=== PATIENT | female | born 1995 | race Caucasian/White ===

== ENCOUNTER 2017-08-20 12:06 | Emergency (ER) | payer MEDICAID ==
[2017-08-20 12:09] VITALS: BMI 41.8
[2017-08-20 12:18] VITALS: TEMP 98.5
[2017-08-20 13:51] VITALS: RESP 17; O2SAT 100
--- NOTE | 2017-08-20 14:14 | RAD ---
HISTORY: cough COMPARISON: No prior. TECHNIQUE: Chest PA and lateral FINDINGS: LUNGS: No active pulmonary disease. PLEURA: No significant pleural effusion identified. No pneumothorax apparent. CARDIOVASCULAR: Normal. OSSEOUS STRUCTURES: No significant abnormalities. VISUALIZED UPPER ABDOMEN: Normal. OTHER FINDINGS: None. IMPRESSION: No active disease.
--- NOTE | 2017-08-20 14:29 | ED PDOC ---
Arrival/HPI - General Chief Complaint: Cough, Cold, Congestion Time Seen by Provider: 08/20/17 12:32 Historian: Patient - History of Present Illness Narrative History of Present Illness (Text): 08/20/17 14:30 22yo female with PMhx of PCOS present with complaint of nonproductive cough x 2weeks. Patient states she was seen by her PMD for the cough and was given Zpack and proventil. States finished the Zpack but still coughing. States she started having chest pain with the cough. she denies SOB, diaphoresis, LE edema , calf pain, fever,chills, nausea, abdominal pain, any other complaint. Past Medical History - Provider Review Nursing Documentation Reviewed: Yes - Infectious Disease Hx of Infectious Diseases: None - Cardiac Hx Cardiac Disorders: No - Pulmonary Hx Respiratory Disorders: No - Neurological Hx Neurological Disorder: No - HEENT Hx HEENT Disorder: No - Renal Hx Renal Disorder: No - Endocrine/Metabolic Hx Endocrine Disorders: No - Hematological/Oncological Hx Blood Disorders: No - Integumentary Hx Dermatological Disorder: No - Musculoskeletal/Rheumatological Hx Musculoskeletal Disorders: No - Gastrointestinal Hx Gastrointestinal Disorders: No - Genitourinary/Gynecological Hx Genitourinary Disorders: Yes Other/Comment: ovarian cyst, irregular menses - Psychiatric Hx Psychophysiologic Disorder: No Hx Anxiety: No Hx Bipolar Disorder: No Hx Depression: No Hx Emotional Abuse: No Hx Hallucinations: No Hx Panic Disorder: No Hx Post Traumatic Stress Disorder: No Hx Psychosis: No Hx Physical Abuse: No Hx Schizophrenia: No Hx Sexual Abuse: No Hx Substance Use: No - Anesthesia Hx Anesthesia: Yes Hx Anesthesia Reactions: No Hx Malignant Hyperthermia: No Family/Social History - Physician Review Nursing Documentation Reviewed: Yes Family/Social History: Unknown Family HX Smoking Status: Never Smoked Hx Alcohol Use: No Hx Substance Use: No Allergies/Home Meds Allergies/Adverse Reactions: Allergies bupropion Adverse Reaction (Verified 08/20/17 12:10) SWELLING naltrexone Adverse Reaction (Verified 08/20/17 12:10) SWELLING Home Medications: Home Meds Medication Instructions Recorded Confirmed Albuterol HFA [Ventolin HFA 90 0.09 mg IH TID 08/20/17 08/20/17 mcg/actuation (8 g)] Beclomethasone Dipropionate [Qvar 0.08 mg IH BID 08/20/17 08/20/17 80 mcg] Fluticasone Nasal [Flonase] 0.05 mg NS DAILY 08/20/17 08/20/17 Levocetirizine Dihydrochloride 5 mg PO DAILY 08/20/17 08/20/17 [Xyzal] MedroxyPROGESTERone [Provera] 10 mg PO DAILY 08/20/17 08/20/17 MetFORMIN [glucOPHAGE] 500 mg PO DAILY 08/20/17 08/20/17 Montelukast [Singulair] 10 mg PO DAILY 08/20/17 08/20/17 Review of Systems - Physician Review All systems were reviewed & negative as marked: Yes - Review of Systems Constitutional: Normal Eyes: Normal ENT: Normal Respiratory: Cough. absent: SOB, Sputum, Wheezing Cardiovascular: Normal Gastrointestinal: Normal Genitourinary Female: Normal Musculoskeletal: Normal Skin: Normal Neurological: Normal Endocrine: Normal Hemo/Lymphatic: Normal Psychiatric: Normal Physical Exam Vital Signs Reviewed: Yes Vital Signs Temp Pulse Resp BP Pulse Ox 08/20/17 14:59 89 17 120/78 100 08/20/17 13:45 101 H 17 121/80 100 08/20/17 12:17 98.5 F 108 H 18 120/84 98 Temperature: Afebrile Blood Pressure: Normal Pulse: Regular Respiratory Rate: Normal Appearance: Positive for: Well-Appearing, Non-Toxic, Comfortable Pain Distress: None Mental Status: Positive for: Alert and Oriented X 3 - Systems Exam Head: Present: Atraumatic, Normocephalic Pupils: Present: PERRL Extroacular Muscles: Present: EOMI Conjunctiva: Present: Normal Mouth: Present: Moist Mucous Membranes Neck: Present: Normal Range of Motion Respiratory/Chest: Present: Clear to Auscultation, Good Air Exchange. No: Respiratory Distress, Accessory Muscle Use, Wheezes, Decreased Breath Sounds, Rales, Retracting, Rhonchi Cardiovascular: Present: Regular Rate and Rhythm, Normal S1, S2. No: Murmurs Abdomen: Present: Normal Bowel Sounds. No: Tenderness, Distention, Peritoneal Signs Back: Present: Normal Inspection Upper Extremity: Present: Normal Inspection. No: Cyanosis, Edema Lower Extremity: Present: Normal Inspection. No: Edema Neurological: Present: GCS=15, CN II-XII Intact, Speech Normal Skin: Present: Warm, Dry, Normal Color. No: Rashes Psychiatric: Present: Alert, Oriented x 3, Normal Insight, Normal Concentration Medical Decision Making ED Course and Treatment: 08/20/17 19:35 CXR NAD Result was DW the pt. Antibiotic is not indicated at this time. Pt was treated with Zpack last week. She was DC home with Promethazine. Advised to continue with the medications her PMD gave her. - RAD Interpretation Radiology Orders: 08/20/17 12:32 CHEST TWO VIEWS (PA/LAT) [RAD] Stat - Medication Orders Current Medication Orders: Discontinued Medications Promethazine HCl/Dextromethorphan (Phenergan Dm Syrup) 5 ml PO ONCE ONE Stop: 08/20/17 14:36 Disposition/Present on Arrival - Present on Arrival Any Indicators Present on Arrival: No History of DVT/PE: No History of Uncontrolled Diabetes: No Urinary Catheter: No History of Decub. Ulcer: No History Surgical Site Infection Following: None - Disposition Have Diagnosis and Disposition been Completed?: Yes Diagnosis: Cough Disposition: HOME/ ROUTINE Disposition Time: 14:35 Patient Plan: Discharge Condition: STABLE Discharge Instructions (ExitCare): Cough, Adult (DC) Additional Instructions: Follow up with your doctor and continue with medications Return to ED for any new symptoms Prescriptions: Promethazine [Phenergan Syrup] 6.25 mg PO Q6 #100 ml Referrals: Pavithra Grant MD [Primary Care Provider] - Follow up with primary Forms: [facility] ([place])
[2017-08-20] MEDS ORDERED: Promethazine DM 6.25 mg-15 mg/5 ml Syrup PO ONE (14:35)
[2017-08-20 15:01] VITALS: BP 120/78; PULSE 89
== END 2017-08-20 15:01 | disposition home or self-care (01) ==
LOC: ED 12:06
DX: R05 Cough (principal); E28.2 Polycystic ovarian syndrome